=== PATIENT | female | born 1935 | race Caucasian/White ===

== ENCOUNTER 2021-03-29 07:01 | Day surgery (SDC) | payer MEDICARE, MEDICAID ==
[~2021-03-29] VITALS: Ht 160 cm; Wt 97.2 kg
[~2021-03-29 07:01] MED LIST: SODIUM CHLORIDE 0.9% 1,000 ML IV SCH
[2021-03-29] MEDS ORDERED: ASPI-1450 PO (07:05)
[2021-03-29] MEDS ORDERED: METO25 PO (07:05)
[2021-03-29] MEDS ORDERED: SERT-162 PO (07:05)
[2021-03-29] MEDS ORDERED: OLME40TA8 PO (07:05)
[2021-03-29] MEDS ORDERED: ICOS1CAP PO (07:05)
[2021-03-29] MEDS ORDERED: ATOR40TA28 PO (07:05)
[2021-03-29] MEDS ORDERED: GABA-1181 PO (07:05)
[2021-03-29] MEDS ORDERED: METF-1211 PO (07:05)
[2021-03-29] MEDS ORDERED: LEVO150 PO (07:05)
[2021-03-29] MEDS ORDERED: ARIP2TAB27 PO (07:05)
[2021-03-29] MEDS ORDERED: DiphenhydrAMINE HCL 50 MG CAPSULE PO ONE (08:00)
[2021-03-29] MEDS ORDERED: DIAZEPAM 5 MG TABLET PO ONE (08:00)
[2021-03-29] MEDS ORDERED: ASPIRIN 81 MG CHEWABLE TABLET PO ONE (08:00)
[2021-03-29 08:10] LABS: GLUCOMETER DEV NAME(LOC) SDS.; GLUCOSE,POINT OF CARE 165 MG/DL (70-110)
[2021-03-29] MEDS ORDERED: DiphenhydrAMINE HCL 50 MG CAPSULE ONE (08:18)
[2021-03-29] MEDS ORDERED: DIAZEPAM 5 MG TABLET ONE (08:18)
[2021-03-29] MEDS ORDERED: ASPIRIN 81 MG CHEWABLE TABLET ONE (08:19)
[2021-03-29] MEDS ORDERED: IOHEXOL 300 MG/ML 50 ML VIAL ONE (08:57)
[2021-03-29] MEDS ORDERED: IOHEXOL 300 MG/ML 150 ML VIAL ONE (08:57)
[2021-03-29] MEDS ORDERED: SODIUM BICARBONATE 50 MEQ/50 ML VIAL ONE (08:57)
[2021-03-29] MEDS ORDERED: IOHEXOL 300 MG/ML 100 ML VIAL ONE ×2 (08:57→10:18)
[2021-03-29] MEDS ORDERED: HEPARIN SODIUM 1000 UNITS/NS 1,000 ML ONE (08:57)
[2021-03-29] MEDS ORDERED: LIDOCAINE/PF 1% 30 ML VIAL ONE (08:57)
[2021-03-29 09:16] VITALS: BP 123/77
[2021-03-29] MEDS ORDERED: FentaNYL CITRATE PF 100 MCG/2 ML VIAL ONE (09:17)
[2021-03-29] MEDS ORDERED: MIDAZOLAM HCL 2 MG/2 ML VIAL ONE (09:18)
[2021-03-29] MEDS ORDERED: IOHEXOL 300 MG/ML 150 ML VIAL IARTER ONE (09:30)
[2021-03-29] MEDS ORDERED: LIDOCAINE 1% 30 ML/SOD BICARB 8.4% 4 ML SQ ONE (09:30)
[2021-03-29] MEDS ORDERED: HEPARIN SODIUM 1000 UNITS/NS 1,000 ML IARTER ONE (09:30)
[2021-03-29] MEDS ORDERED: HEPARIN SODIUM,PORCINE 5,000 UNITS/ML VIAL IVP ONE ×3 (10:00→10:30)
[2021-03-29] MEDS ORDERED: FentaNYL CITRATE PF 100 MCG/2 ML VIAL IVP ONE (10:15)
[2021-03-29] MEDS ORDERED: MIDAZOLAM HCL 2 MG/2 ML VIAL IVP ONE (10:15)
[2021-03-29] MEDS ORDERED: TICAGRELOR 90 MG TABLET ONE ×2 (10:30→13:24)
[2021-03-29] MEDS ORDERED: TICAGRELOR 90 MG TABLET PO ONE ×2 (10:45→15:00)
[2021-03-29 10:56] VITALS: BP 157/68
[2021-03-29] MEDS ORDERED: SODIUM CHLORIDE 0.9% 1,000 ML IV ONE (11:00)
== END 2021-03-29 15:30 | disposition home or self-care (01) ==
LOC: CATHLAB 07:01
PROVIDERS: ATTEND Internal Medicine Interventional Cardiology
DX: R07.89 Other chest pain (principal); I25.119 Atherosclerotic heart disease of native coronary artery with unspecified angina pectoris; E78.5 Hyperlipidemia, unspecified; D64.9 Anemia, unspecified; E11.9 Type 2 diabetes mellitus without complications; I73.9 Peripheral vascular disease, unspecified; F41.9 Anxiety disorder, unspecified; F32.A Depression, unspecified; Z96.651 Presence of right artificial knee joint; Z79.899 Other long term (current) drug therapy
CPT/HCPCS: 82962; 92978; 93005; 93458; 99152; C1757; C1760; C1874; C1887; C9600; J1644; J2250; J3010; J3490 ×2; Q9967 ×2; 75960; 92920; 92928